=== PATIENT | male | born 1975 | race Caucasian/White ===

== ENCOUNTER 2017-12-05 06:35 | Day surgery (SDC) | payer OTHER ==
[~2017-12-05] VITALS: Ht 190.5 cm; Wt 92.3 kg
[2017-12-05] MEDS ORDERED: LACTATED RINGERS 1,000 ML IV SCH (07:43)
[2017-12-05 07:45] VITALS: BP 135/98
[2017-12-05] MEDS ORDERED: OXYcodone IR 5MG TABLET PO ONE (08:00)
[2017-12-05] MEDS ORDERED: ONDANSETRON ODT 8 MG PO ONE (08:00)
[2017-12-05] MEDS ORDERED: GABAPENTIN 300 MG CAPSULE PO ONE (08:00)
[2017-12-05] MEDS ORDERED: ACETAMINOPHEN 500 MG TABLET PO ONE (08:00)
[2017-12-05] MEDS ORDERED: CLON0.25 PO (08:11)
[2017-12-05] MEDS ORDERED: BUPIVACAINE/PF-EPI 0.5% 1:200K ONE (08:49)
[2017-12-05] MEDS ORDERED: MIDAZOLAM 1 MG/ML, 2ML ONE (09:47)
[2017-12-05] MEDS ORDERED: FENTANYL PF 100 MCG/2ML ONE ×2 (09:47→11:35)
[2017-12-05] MEDS ORDERED: SUCCINYLCHOLINE 20 MG/ML, 10ML ONE (10:16)
[2017-12-05] MEDS ORDERED: DEXAMETHASONE 4 MG/ML, 1ML ONE (10:36)
[2017-12-05] MEDS ORDERED: PROPOFOL 10 MG/ML, 20ML ONE (10:36)
[2017-12-05] MEDS ORDERED: ONDANSETRON 2MG/ML, 2ML ONE (10:36)
[2017-12-05] MEDS ORDERED: CEFAZOLIN 1,000 MG ONE (10:36)
[2017-12-05] MEDS ORDERED: KETOROLAC 30 MG/1 ML ONE (10:38)
[2017-12-05] MEDS ORDERED: ALBUTEROL/IPRATROPIUM 2.5MG/0.5MG, 3 ML NPPB PRN (11:00)
[2017-12-05] MEDS ORDERED: LABETALOL 5MG/ML, 20ML IV PRN (11:00)
[2017-12-05] MEDS ORDERED: LORazepam 2 MG/ML, 1ML IVPush PRN (11:00)
[2017-12-05] MEDS ORDERED: MEPERIDINE/PF 25MG/0.5ML IVPush PRN (11:00)
[2017-12-05] MEDS ORDERED: EPHEDRINE 50 MG/ML, 1ML IM PRN (11:00)
[2017-12-05] MEDS ORDERED: PROMETHAZINE 25 MG SUPP PR PRN (11:00)
[2017-12-05] MEDS ORDERED: FENTANYL PF 100 MCG/2ML IV PRN (11:00)
[2017-12-05] MEDS ORDERED: ONDANSETRON 2MG/ML, 2ML IVPush PRN (11:00)
[2017-12-05] MEDS ORDERED: DIAZEPAM 5 MG/ML, 2ML IVPush PRN (11:00)
[2017-12-05] MEDS ORDERED: PROMETHAZINE 25 MG/ML, 1ML IV PRN (11:00)
[2017-12-05] MEDS ORDERED: hydrALAzine 20 MG/ML, 1ML IV PRN (11:00)
[2017-12-05] MEDS ORDERED: OXYcodone 5 MG/5 ML ORAL.SOL UDC PO PRN (11:00)
[2017-12-05] MEDS ORDERED: SCOPOLAMINE PATCH, 1.5MG PATCH.TD72 TD PRN (11:00)
[2017-12-05] MEDS ORDERED: MIDAZOLAM 1 MG/ML, 2ML IV PRN (11:00)
[2017-12-05] MEDS ORDERED: MORPHINE SULFATE 4 MG/ML, 1ML IVPush PRN (11:00)
[2017-12-05] MEDS ORDERED: MEPERIDINE/PF 25MG/0.5ML ONE (11:35)
[2017-12-05] MEDS ORDERED: OXYcodone 5 MG/5 ML ORAL.SOL UDC ONE (11:35)
== END 2017-12-05 13:25 ==
LOC: OUT 06:35
PROVIDERS: ATTEND Colon & Rectal Surgery
DX: M79.89 Other specified soft tissue disorders (principal); Z72.89 Other problems related to lifestyle
CPT/HCPCS: 27047; 88305; J0330; J0690; J1100; J1885; J2175; J2250; J2405; J2704; J3010; J7120; Q0162